=== PATIENT | female | born 1970 | race Caucasian/White ===

== ENCOUNTER 2018-09-13 18:29 | Emergency (ER) | payer MEDICAID ==
[~2018-09-13] VITALS: Ht 162.6 cm; Wt 54.4 kg
[2018-09-13 18:33] VITALS: BP 130/80
--- NOTE | 2018-09-13 18:40 | NUR ---
BIB . AAO X4 C/O VOMITTING X3 45 MINUTES AGO, NUMBNESS TO BOTH HANDS. HEADACHE 5/10. PT DENIES SOB, FEVER. EQUAL NENO STRENGTH TO UPPER EXTREMITIES, STEADY GAIT. PT PLACEDON FULL RECORD KEEPER. HOB UP. BED SIDE RAILS UP X1. ON LOW BED POSITION, LOCKED. ER TO [facility] PT.
[2018-09-13] MEDS ORDERED: ONDANSETRON 4 MG/2 ML VIAL IVP ONE (19:10)
--- NOTE | 2018-09-13 19:12 | NUR ---
Pt report given to CHRIS Nazario. Transfer of care at this time.
[2018-09-13] MEDS ORDERED: NACL 0.9% 1,000 ML IV ONE (19:31)
[2018-09-13] MEDS ORDERED: diphenhydrAMINE 50 MG/ML VIAL IVP ONE (19:35)
[2018-09-13] MEDS ORDERED: METOCLOPRAMIDE 10 MG/2 ML INJ VIAL IVP ONE (19:35)
--- NOTE | 2018-09-13 20:00 | NUR ---
PT REPORTS RELIEF OF PAIN POST MEDICATION ADMIN. ER MD NOTIFED. WILL CONTINUE TO ASSESS.
--- NOTE | 2018-09-13 20:15 | NUR ---
IV removed, catheter intact and site benign. Applied folded 4x4 gauze and tape to stop bleeding.
--- NOTE | 2018-09-13 20:16 | NUR ---
Patient discharged with v/s stable. Written and verbal after care instructions given and explained. Patient alert, oriented and verbalized understanding of instructions. Ambulatory with steady gait. All questions addressed prior to discharge. ID band removed. Patient advised to follow up with PMD. Rx of CIPRO, ZOFRAN, MOTRIN given. Patient educated on indication of medication including possible reaction and side effects. Opportunity to ask questions provided and answered.
[2018-09-13 20:17] VITALS: BP 113/47
== END 2018-09-13 20:16 | disposition home or self-care (01) ==
LOC: MED 18:29
DX: N39.0 Urinary tract infection, site not specified (principal); R51 Headache
CPT/HCPCS: 81002; 81025; 96361; 96374; 96375; 99283; J1200; J2405; J2765; J7030

== ENCOUNTER 2020-02-05 14:13 | Emergency (ER) | payer MEDICAID ==
[~2020-02-05] VITALS: Ht 152.4 cm; Wt 56.2 kg
[2020-02-05 14:18] VITALS: BP 107/70
--- NOTE | 2020-02-05 14:24 | NUR ---
PT SENT TO LOBBY TO WAIT FOR AVAILABLE BED ACCOMPANIED BY MOTHER.
--- NOTE | 2020-02-05 15:40 | NUR ---
49 y/o female c/o headache x 5 months that radiates to neck. Pt states intermittent blurred vision. States 5/10 aching pain to head. Last took medication for pain 2 days ago. Denies N/V/D. Awake and alert. VSS medhx: denies
--- NOTE | 2020-02-05 15:52 | NUR ---
MELVA Cooper at bedside examining pt
[2020-02-05] MEDS ORDERED: KETOROLAC 30 MG/ML VIAL IM ONE (15:55)
[2020-02-05 16:11] VITALS: BP 107/70
--- NOTE | 2020-02-05 16:11 | NUR ---
Patient discharged with v/s stable. Written and verbal after care instructions given and explained. Patient alert, oriented and verbalized understanding of instructions. Ambulatory with steady gait. All questions addressed prior to discharge. ID band removed. Patient advised to follow up with PMD. Rx of Naproxen 375mg and Loratadine 10mg given. Patient educated on indication of medication including possible reaction and side effects. Opportunity to ask questions provided and answered.
== END 2020-02-05 16:11 | disposition home or self-care (01) ==
LOC: MED 14:13
DX: R51.9 Headache, unspecified (principal)
CPT/HCPCS: 96372; 99283; J1885